=== PATIENT | male | born 1970 | race Caucasian/White ===

== ENCOUNTER → 2021-01-17 08:22 | Outpatient (CLI) | payer OTHER, SELFPAY ==
--- NOTE | ~2021-01-17 | US_ITS ---
EXAMINATION: US abdomen complete EXAM DATE: 01/17/2021 08:55 INDICATION: Generalized abdominal pain. TECHNIQUE: Multiple grayscale and Doppler images of the complete abdomen were obtained (by a technolo gist who performed the scan) and subsequently reviewed. There is no prior study for comparison. FINDINGS: The abdominal aorta is normal in caliber. Visualized portion IVC is patent. The pancreatic head a nd body are normal in appearance. The pancreatic tail is not visualized. The liver has normal echogenicity and contour. There are no focal liver lesions identified. There is no evidence of intrahepatic biliary duct dilation. Portal venous flow was seen in the hepatopedal , normal direction and has normal Doppler waveform. Common bile duct measures 3 mm, which is normal. The gallbladder wall is normal in thickness, with ex pected amount of distention. No sonographic evidence of pericholecystic fluid. There is cholelithia sis. There is a 4 mm gallbladder polyp not likely clinically significant. Technologist performing ex am reports patient did not demonstrate sonographic Renee's sign. Please note that this sign is less reliable in patients who have received pain medication. Right kidney: There is normal contour and echogenicity. It measures 9.0 x 5.5 x 6.0 centimeters. T here are no focal renal lesions identified. There is no hydronephrosis. Left kidney: There is normal contour and echogenicity. It measures 9.6 x 5.8 x 5.1 centimeters. Th ere are no focal renal lesions identified. There is no hydronephrosis. The spleen measures 8.1 centimeters and is morphologically normal. IMPRESSION: 1. Tiny gallbladder polyp. 2. Otherwise unremarkable abdominal ultrasound. Reviewed, dictated and finalized at location B. LOPMENT ASSISTANT
== END ==
PROVIDERS: PCP Internal Medicine; Visit Provider Internal Medicine
DX: R10.9 Unspecified abdominal pain (principal); K82.4 Cholesterolosis of gallbladder
CPT/HCPCS: 76700

== ENCOUNTER 2023-06-30 07:48 | Outpatient (CLI) | payer OTHER, SELFPAY ==
--- NOTE | ~2023-06-30 | MR_ITS ---
MRI of the lumbar spine Clinical History: Spondylosis Technique: Axial T2-weighted images, and sagittal T1-weighted, T2-weighted, and T2 fat-sat images wer e acquired. COMPARISON: 01/14/2019 Findings: No fracture identified. 4 mm anterolisthesis of L4 over L5 is present. L2 intraosseous kevin ngioma present. No suspicious bone marrow signal abnormality evident. At L1-L2, there is no disc bulge or herniation. There is mild facet joint hypertrophy. No central can al stenosis or neural foraminal narrowing. At L2-L3, there is minimal disc bulge and moderate facet arthropathy. No central canal stenosis or ne ural foraminal narrowing. L3-L4, there is mild disc bulge with moderate facet arthropathy. No central canal stenosis or neural foraminal narrowing. At L4-L5, disc bulge and severe facet arthropathy are present, with mild central canal stenosis. Ther e is moderate bilateral neural foraminal narrowing. At L5-S1, there is minimal disc bulge with moderate to advanced facet arthropathy. No central canal s tenosis. There is moderate to severe left bilateral neural foraminal narrowing. Paravertebral soft tissues are unremarkable. Impression: 4 mm anterolisthesis of L4 over L5. Moderate degenerative spondylosis at L4-L5 and L5-S1. Reviewed, dictated and finalized at location . Impression: 4 mm anterolisthesis of L4 over L5. Moderate degenerative spondylosis at L4-L5 and L5-S1.
== END 2023-06-30 07:49 | disposition home or self-care (01) ==
PROVIDERS: PCP Physician Assistant; Visit Provider Nurse Practitioner Adult Health
DX: M47.26 Other spondylosis with radiculopathy, lumbar region (principal)
CPT/HCPCS: 72148